=== PATIENT | male | born 1985 | race Two or more races ===

== ENCOUNTER 2021-03-17 14:49 | Emergency (ER) | payer OTHER, SELFPAY ==
[2021-03-17 15:01] VITALS: BP 136/82; PULSE 120; BMI 22.9
[2021-03-17 15:10] VITALS: BP 141/84; PULSE 112; TEMP 36.7; O2SAT 99
--- NOTE | 2021-03-17 15:54 | ED.OVERDOSE ---
HPI - Overdose General Chief Complaint: Overdose Stated Complaint: od Time Seen by Provider: 03/17/21 15:49 Source: patient Mode of arrival: EMS Limitations: no limitations History of Present Illness HPI Narrative: 35-year-old male past medical history significant for opiate use disorder presents to the emergency department via EMS with concerns of an overdose. Patient tells me that this morning he took oxycodone that he found, and he used 1 bag of heroin (inhaled) he tells me that he has been clean for a few months, he has not used heroin. He told me used today because he found it around the house. He tells me that his sister called EMS, because he fell asleep on the couch after using heroin. He tells me did not fall he did not hit his head, did not lose consciousness. According to EMS he received 4 mg of intranasal Narcan. At this time patient has no complaints, he is feeling well and wants to leave. He denies chest pain, shortness of breath, fevers, chills, nausea, vomiting, headaches, dizziness. No SI or HI. He sates this was accidental MD complaint: accidental overdose Onset (ago): hour(s) (1) Intent: other (accidental ) How Overdose Was Discovered: called family/friend Context: Intentional Overdose: other (accidental ) Context: Accidental Overdose: other (found a bag around the house ) Treatments Prior to Arrival: narcan (4 mg) Related Data Allergies Allergy/AdvReac Type Severity Reaction Status Date / Time No Known Drug Allergies Allergy Unknown Verified 03/17/21 15:03 Review of Systems Review of Systems: Constitutional : No Weight loss, No Fever, No Chills, No Fatigue, No Malaise ENT/Mouth : No sore throat, No Rhinorrhea Eyes: No Eye Pain, No Swelling, No Redness Cardiovascular : No Chest Pain, No SOB, No Dyspnea on Exertion, No Orthopnea, No Edema, No Palpitations Respiratory : No Cough, No Sputum, No Wheezing Gastrointestinal : No Nausea, No Vomiting, No Diarrhea, No Constipation, No abdominal Pain, No Hematochezia, No Melena Genitourinary : No Dysuria, No Urinary Frequency, No Hematuria, Musculoskeletal : No joint pain, No Myalgias, No Joint Swelling Skin : No Skin Lesions, No rash Neuro : No Weakness, No Numbness, No Dizziness, No Headache Psych : No Anxiety/Panic, No Depression, No SI/HI All other systems reviewed and are negative Yes all other systems are reviewed and are negative [facility] Past Medical History Attestation statement: The following information was validated with the patient. Source: old records reviewed and nursing notes reviewed Social History Social History Alcohol intake: current Patient Tobacco Use Status: Current everyday Tobacco user Use of substances other than those prescribed or required for medical reasons: Yes Substance Use Type: Heroin Advance Directives: No Advance Directives Information Provided: Yes Physical Exam Vital Signs: Vital Signs: Last Vital Signs Temp 98.1 F 03/17/21 15:10 Pulse 97 03/17/21 16:29 BP 133/83 03/17/21 16:29 Pulse Ox 98 03/17/21 16:29 BMI result Body Mass Index 22.9 VSS Appearance: Alert.? Oriented X3.? No acute distress.? Head: Normocephalic, atraumatic, no step-offs or deformities Eyes: Pupils equal, round and reactive to light.? ENT: Pharynx normal.? Neck: Normal inspection.? Neck supple.? CVS: Normal heart rate and rhythm.? Pulses normal.? Respiratory: No respiratory distress.? Breath sounds normal.? Abdomen: Soft and nontender.? Skin: Skin warm and dry.? Normal skin color.? Normal skin turgor.? Extremities: No lower extremity edema.? No calf ttp. 5/5 strength to bilateral upper and lower extremities Back: No midline tenderness, no C-spine tenderness, full range of motion, no CVA tenderness bilaterally Neuro: Oriented X 3.? No motor deficit.? No sensory deficit. CN 2-12 intact Course Reevaluation(s) Reevaluation #1: Patient is feeling much better, patient's vital signs are stable. Saturating 98% on room air. He has no complaints again, he does not want any resources. Respiratory rate within normal limts. Patient is safe for discharge home. I have advised him to return to the emergency department with new or worsening symptoms. Time: 16:51 MDM - Overdose MDM Narrative Medical decision making narrative: 1600 35-year-old male past medical history significant for opiate use disorder presents to the emergency via EMS with concerns of an overdose. Patient tells me that he took oxycodone that he found around the house and use 1 bag of heroin (snorted) he tells me he fell asleep and his sister called 911. He has no medical complaints at this time. He would like to go home when he is doing well. Physical examination is benign, cranial nerves 2-12 intact no focal neuro deficits. Patient is alert and oriented x3. Vital signs are stable. Plan at this time is to monitor the patient for a while then DC patient home. 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 He is telling me he does not want any services at this time, he tells me he was sober for a long time and he was able to cut out opiates on his own. Critical Care Time Critical Care Time Critical Care Time: No Discharge Plan Discharge Clinical Impression: Heroin overdose Patient Disposition: Home, Self-Care Instructions: Adult Overdose (ED) Additional Instructions: Take your medications as prescribed. Do not take random medications you find around her house, this is not safe. I offered you detox, and you declined. Please come back if you change your mind. Follow-up with your primary care provider this week. Return to the emergency department with new or worsening symptoms. In case of emergency call 911 Referrals: PhysicianRah [Primary Care Provider] - 2 days
--- NOTE | 2021-03-17 16:27 | MHC.RECOVSUP ---
? Reason for consult:Overdose o?? Current location ED19H? o?? Identified substance use concern Heroin? ?? Overdose ?? Support ? Intervention: o?? Community resources provided o?? Harm reduction discussion ? Plan: ? o?? Patient to follow up with [facility] after discharge ? Additional information: ?Met with Pt. He states that he had pain and took medication that was prescribe to him. Pain was very severe that he decide to do a bag of heroin.He also states that he has been in recovery for about two months.I asked he he wanted to go to detox Pt. refuse to go.Gave Pt. information about Recovery Coaching and [facility].
[2021-03-17 16:29] VITALS: BP 133/83; PULSE 97; O2SAT 98
--- NOTE | 2021-03-17 17:09 | HO.SUDE ---
CARE Team met with pt to offer pt SUDE. Pt declined SUDE and declined resources.
== END 2021-03-17 17:08 | disposition home or self-care (01) ==
PROVIDERS: Emergency Provider Emergency Medicine
DX: T40.1X1A Poisoning by heroin, accidental (unintentional), initial encounter (principal); Y92.9 Unspecified place or not applicable
CPT/HCPCS: 99284

== ENCOUNTER 2023-10-22 00:21 | Emergency (ER) | payer SELFPAY ==
--- NOTE | 2023-10-22 | ECG_ITS ---
Test Reason : CHEST PAIN Blood Pressure : / mmHG Vent. Rate : 085 BPM Atrial Rate : 085 BPM P-R Int : 124 ms QRS Dur : 106 ms QT Int : 368 ms P-R-T Axes : 056 053 051 degrees QTc Int : 437 ms Normal sinus rhythm Normal ECG No previous ECGs available Referred By: Generic ED Physician Electronically Signed By:Ramon Ramirez
--- NOTE | ~2023-10-22 | XR_ITS ---
EXAMINATION: XR KNEE, RIGHT CLINICAL INFORMATION: Injury. Pain. COMPARISON: None available. TECHNIQUE: Four views of the right knee. FINDINGS: The bony structures are osteopenic. The joint spaces are maintained. There is no fracture. There is no joint effusion. There is prepatellar soft tissue swelling. XR/XR knee RT 3V IMPRESSION: Prepatellar soft tissue swelling. Osteopenia. No fracture or joint effusion.
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
--- NOTE | 2023-10-22 00:31 | MHC.EDTECH ---
Patient ekg taken and was read by Provider .
[2023-10-22 01:01] VITALS: BP 128/79; PULSE 85; RESP 16; TEMP 36.9; O2SAT 99; BMI 31.9
--- OUTSIDE RECORDS SUMMARY | 2023-10-22 02:31 | XMS_ITS | Continuity of Care Document ---
Author Organization [facility] Address Unknown Care Team Providers Care Contact Lens Molder Name Role Phone Not on Staff, PCP Primary Care Physician Unavail able [place] [facility] [place] [facility] Attending Physician: Phoebe DE SOUZA, Evelyn Bender Allergies, Adverse Reactions, Alerts No Known Medication Allergies Substance Reaction Severity Status NKA Active Immunizations Given and Recorded Vaccine Date Status Refusal Reason influenza virus vaccine, inactivated 01/16/21 Give n tetanus/diphtheria/pertussis, acel(Tdap) 06/12/18 Given Medications Colace sodium 100 mg oral capsule 100 mg, 1, capsule, By Mouth, 2 times a day, # 28 capsule, Refills 0, Tot. Refills 0, Maintenance, 01/21/21 13:00:00 EDT, Route to Pharmacy Electronically, [facility], Partial fill uponpatient request if the prescription is for a schedu... Start Date: 01/21/21 Stop Date: 02/04/21 Status: Ordered gabapentin 300 mg oral capsule 600 mg, 2, capsule, By Mouth, 3 times a day, # 180 capsule, Refills 0, Tot. Refills 0, Maintenance,01/21/21 13:00:00 EDT, Route to Pharmacy Electronically, [facility], Partial fill upon patient request if the prescription is for a sched... Start Date: 01/21/21 Stop Date: 02/20/21 Status: Ordered ibuprofen 600 mg oral tablet 600 mg, 1, tablet, By Mouth, Every 6 hours, PRN, for 14 days, # 56 tablet, Refills 0, Tot. Refills 0, Acute 02/23/21 14:18:00 EST, Pain , Mild for pain, 02/09/21 14:18:00 EDT, Route to Pharmacy Electronically, [facility], Partial fill... Start Date: 02/09/21 Stop Date: 02/23/21 Status: Ordered lidocaine 4% topical cream 1 application, Topically, 2 times a day, for 14 days, # 30 Gm, 0 Refills, Acute 02/23/21 14:18:00 EST, 02/09/21 14:18:00 EDT, Cream, [facility], Partial fill upon patient request if theprescription is for a schedule II opioid drug., 1 a... Start Date: 02/09/21 Stop Date: 02/23/21 Status: Ordered lidocaine 5% topical film 3 patch, Topically, Daily, # 90 patch, 0 Refills, Maintenance, 01/21/21 13:00:00 EDT, Patch, [facility], Partial fill upon patient request if the prescription is for a schedule II opioid drug., 3 patch Topically Daily,x30 days, 180, cm,... Start Date: 01/21/21 Stop Date: 02/20/21 Status: Ordered [employer] Platform Walker, See Instructions, # 1 each, Refills 0, Tot. Refills 0, Maintenance, Platform Walker, 01/21/21 13:49:00 EDT, Supply Start Date: 01/21/21 Status: Ordered Tylenol 325 mg oral capsule 2 capsule = 650 mg, By Mouth, Every 4 hours, PRN as needed for fever, for 14 days, # 112 capsule, 0Refills, Acute 02/23/21 14:18:00 EST, 02/09/21 14:18:00 EDT, Capsule, [facility], Partial fill upon patient request if the prescription i... Start Date: 02/09/21 Stop Date: 02/23/21 Status: Ordered Problem List Condition Effective Dates Status Health Status Inform ant Rib fractures(Confirmed) Active Vital Signs Most recent to oldest [Reference Range]: 1 Height 180 cm (02/15/21 1:43 PM) Pulse Rate [55-90 bpm] 95 bpm *H* (02/15/21 1:43 PM) Blood Pressure [90-138/55-84 mm Hg] 114/ 68mm Hg (02/15/21 1:43 PM) Respiratory Rate [16-30 br/min] 16 br/mi n (02/15/21 1:43 PM) Temperature [96.8-100.4 DegF] 97.8 DegF (02/15/21 1:43 PM) Blood pressure sites Arm, left (02/15/21 1:43 PM) Temperature Route Temporal (02/15/21 1:43 PM) Social History Social History Type Response Smoking Status 10 or more cigarette s (1/2 pack or more)/day in last 30 days entered on: 06/12/18 Sex
--- OUTSIDE RECORDS SUMMARY | 2023-10-22 02:31 | XMS_ITS | Continuity of Care Document ---
Author Organization [facility] Address Unknown Care Team Providers Care Superintendent Greens Name Role Phone Not on Staff, PCP Primary Care Physician Unavail able [place] [facility] [place] 03/01/21 - 03/08/21 [facility] Attending Physician: Phoebe DE SOUZA, [...] 01/21/21 13:00:00 EDT, Route to Pharmacy Electronically, [email or web address], Partial fill uponpatient request if the prescription is for a schedu... Start Date: 01/21/21 Stop Date: 02/04/21 Status: Ordered gabapentin 300 mg oral capsule 600 mg, 2, capsule, By Mouth, 3 times a day, # 180 capsule, Refills 0, Tot. Refills 0, Maintenance,01/21/21 13:00:00 EDT, Route to Pharmacy Electronically, [email or web address], Partial fill upon patient request if the prescription is for a sched... Start Date: 01/21/21 Stop Date: 02/20/21 Status: Ordered lidocaine 5% topical film 3 patch, Topically, Daily, # 90 patch, 0 Refills, Maintenance, 01/21/21 13:00:00 EDT, Patch, [facility], Partial fill upon patient request if the prescription is for a schedule II opioid drug., 3 patch Topically Daily,x30 days, 180, cm,... Start Date: 01/21/21 Stop Date: 02/20/21 Status: Ordered oxyCODONE 5 mg oral capsule 1 capsule = 5 mg, By Mouth, Every 6 hours, PRN as needed for pain, 0 Refills, Maintenance, 03/01/2113:48:00 EST, Capsule, Partial fill upon patient request if the prescription is for a schedule II opioid drug. Start Date: 03/01/21 Status: Ordered Platform Walker Platform Walker, See Instructions, # 1 each, Refills 0, Tot. Refills 0, Maintenance, Platform Walker, 01/21/21 13:49:00 EDT, Supply Start Date: 01/21/21 Status: Ordered Problem List Condition Effective Dates Status Health Status Inform ant Rib fractures(Confirmed) Active Social History Social History Type Response Smoking Status 10 or more cigarette s (1/2 pack or more)/day in last 30 days entered on: 06/12/18 Sex
--- OUTSIDE RECORDS SUMMARY | 2023-10-22 02:31 | XMS_ITS | Continuity of Care Document ---
Author Organization [facility] Address Unknown Care Team Providers Care Assistant Golf Course Superintendent Name Role Phone Not on Staff, PCP Primary Care Physician Unavail able Encounter [facility] Date(s): 03/01/21 - 03/31/21 [facility] Attending Physician: Renuka Sneed Admitting Physician: Renuka Sneed Referring Physician: AdmRenuka parsons Allergies, Adverse Reactions, Alerts No Known Medication [...] 13:00:00 EDT, Route to Pharmacy Electronically, [facility], Partial fill uponpatient request if the prescription is for a schedu... Start Date: 01/21/21 Stop Date: 02/04/21 Status: Ordered gabapentin 300 mg oral capsule 600 mg, 2, capsule, By Mouth, 3 times a day, # 180 capsule, Refills 0, Tot. Refills 0, Maintenance,01/21/21 13:00:00 EDT, Route to Pharmacy Electronically, [facility], Partial fill upon patient request if the prescription is for a sched... Start Date: 01/21/21 Stop Date: 02/20/21 Status: Ordered lidocaine 5% topical film 3 patch, Topically, Daily, # 90 patch, 0 Refills, Maintenance, 01/21/21 13:00:00 EDT, Patch, [facility], Partial fill upon patient request [...] opioid drug. Start Date: 03/01/21 Status: Ordered [employer] Platform Walker, See Instructions, # 1 each, [...]
--- OUTSIDE RECORDS SUMMARY | 2023-10-22 02:31 | XMS_ITS | Continuity of Care Document ---
Author Organization [facility] Address Unknown Care Team Providers Care Plate Sensitizer Name Role Phone Not on Staff, PCP Primary Care Physician Unavail able [place] [facility] [place](s): 01/23/21 - 02/22/21 [facility] Allergies, Adverse Reactions, Alerts No Known Medication [...] EDT, Route to Pharmacy Electronically, [facility], Partial fill uponpatient request if the prescription is for a schedu... Start Date: 01/21/21 Stop Date: 02/04/21 Status: Ordered gabapentin 300 mg oral capsule 600 mg, 2, capsule, By Mouth, 3 times a day, # 180 capsule, Refills 0, Tot. Refills 0, Maintenance,01/21/21 13:00:00 EDT, Route to Pharmacy Electronically, [facility], Partial fill upon patient request if the prescription is for a sched... Start Date: 01/21/21 Stop Date: 02/20/21 Status: Ordered ibuprofen 600 mg oral tablet 600 mg, 1, tablet, By Mouth, Every 6 hours, PRN, for 14 days, # 56 tablet, Refills 0, Tot. Refills 0, Acute 02/23/21 14:18:00 EST, Pain , Mild for pain, 02/09/21 14:18:00 EDT, Route to Pharmacy Electronically, [facility], Partial fill... Start Date: 02/09/21 Stop Date: 02/23/21 Status: Ordered lidocaine 4% topical cream 1 application, Topically, 2 times a day, for 14 days, # 30 Gm, 0 Refills, Acute 02/23/21 14:18:00 EST, 02/09/21 14:18:00 EDT, Cream, [facility], Partial fill upon [...] Date: 01/21/21 Stop Date: 02/20/21 Status: Ordered [employer] Platform Walker, See Instructions, # 1 each, Refills 0, Tot. Refills 0, Maintenance, Platform Walker, 01/21/21 13:49:00 EDT, Supply Start Date: 01/21/21 Status: Ordered Tylenol 325 mg oral capsule 2 capsule = 650 mg, By Mouth, Every 4 hours, PRN as needed for fever, for 14 days, # 112 capsule, 0Refills, Acute 02/23/21 14:18:00 EST, 02/09/21 14:18:00 EDT, Capsule, [facility], Partial fill upon patient request if the prescription i... Start Date: 02/09/21 Stop Date: 02/23/21 Status: Ordered Problem List Condition Effective Dates Status Health Status Inform ant Rib fractures(Confirmed) Active Social History Social History Type Response Smoking Status 10 or more cigarette s (1/2 pack or more)/day in last 30 days entered on: 06/12/18 Sex
--- OUTSIDE RECORDS SUMMARY | 2023-10-22 02:31 | XMS_ITS | Continuity of Care Document ---
Author Organization [facility] ter Address [address] [place] [id number]- Care Team Providers Care Clinical Nursing Manager Name Role Phone Not on Staff, PCP Primary Care Physician Unavail able [place] [facility] [place] 04/06/[address] [address]- Attending Physician: Derek Crowell MD Admitting Physician: Derek Crowell MD Referring Physician: Derek Crowell MD Allergies, Adverse Reactions, Alerts No Known Medication [...] 01/21/21 13:00:00 EDT, Route to Pharmacy Electronically, [facility], Partial fill uponpatient request if the prescription is for a schedu... Start Date: 01/21/21 Stop Date: 02/04/21 Status: Ordered gabapentin 300 mg oral capsule 600 mg, 2, capsule, By Mouth, 3 times a day, # 180 capsule, Refills 0, Tot. Refills 0, Maintenance,01/21/21 13:00:00 EDT, Route to Pharmacy Electronically, [facility], Partial fill upon patient request if the prescription is for a sched... Start Date: 01/21/21 Stop Date: 02/20/21 Status: Ordered lidocaine 5% topical film 3 patch, Topically, Daily, # 90 patch, 0 Refills, Maintenance, 01/21/21 13:00:00 EDT, Patch, [facility], Partial fill upon patient [...] opioid drug. Start Date: 03/01/21 Status: Ordered [employer] Platform Walker, See Instructions, # 1 each, [...]
--- OUTSIDE RECORDS SUMMARY | 2023-10-22 02:31 | XMS_ITS | Continuity of Care Document ---
Author Organization [facility] ter Address [address] [place] [id number]- Care Team Providers Care Wire Puller Name Role Phone Not on Staff, PCP Primary Care Physician Unavail able Encounter [facility] [place] Date(s): 01/24/21 - 01/24/[address] [address]- Discharge Disposition: A-D/C Home Attending Physician: Brittney Junior DO Admitting Physician: Brittney Junior DO Referring Physician: Not on Staff, Referring MD Allergies, Adverse Reactions, Alerts No Known [...] 01/21/21 13:00:00 EDT, Route to Pharmacy Electronically, [facility], Partial fill uponpatient request if the prescription is for a schedu... Start Date: 01/21/21 Stop Date: 02/04/21 Status: Ordered gabapentin 300 mg oral capsule 600 mg, 2, capsule, By Mouth, 3 times a day, # 180 capsule, Refills 0, Tot. Refills 0, Maintenance,01/21/21 13:00:00 EDT, Route to Pharmacy Electronically, [facility], Partial fill upon patient request if the prescription is for a sched... Start Date: 01/21/21 Stop Date: 02/20/21 Status: Ordered ibuprofen 600 mg oral tablet 600 mg, 1, tablet, By Mouth, 3 times a day, for 14 days, # 42 tablet, Refills 0, Tot. Refills 0, Acute 02/04/21 13:00:00 EDT, 01/21/21 13:00:00 EDT, Route to Pharmacy Electronically, [facility], Partial fill upon patient request if the p... Start Date: 01/21/21 Stop Date: 02/04/21 Status: Ordered lidocaine 5% topical film 3 patch, Topically, Daily, # 90 patch, 0 Refills, Maintenance, 01/21/21 13:00:00 EDT, Patch, [facility], Partial fill upon patient request if the prescription is for a schedule II opioid drug., 3 patch Topically Daily,x30 days, 180, cm,... Start Date: 01/21/21 Stop Date: 02/20/21 Status: Ordered magnesium hydroxide 8% oral suspension 30 mL = 2.4 Gm, By Mouth, 2 times a day, for 10 days, # 600 mL, 0 Refills, Acute 01/31/21 13:00:00 EDT, 01/21/21 13:00:00 EDT, [facility] Partial fill upon patient request if the prescription is for a schedule II opioid drug... Start Date: 01/21/21 Stop Date: 01/31/21 Status: Ordered melatonin 5 mg oral tablet 1 tablet = 5 mg, By Mouth, Daily at bedtime, for 10 days, # 10 tablet, 0 Refills, Acute 01/31/21 13:00:00 EDT, 01/21/21 13:00:00 EDT, Table[facility], Partial fill upon patient request if the prescription is for a schedule II opioid d... Start Date: 01/21/21 Stop Date: 01/31/21 Status: Ordered MiraLax oral powder for reconstitution = 17 Gm, By Mouth, Daily, for 7 days, dissolve in water before taking, # 119 Gm, 0 Refills, Acute 01/28/21 13:00:00 EDT, 01/21/21 13:00:00 EDT, REC Powder, [facility], Partial fill uponpatient request if the prescription is for a schedu... Start Date: 01/21/21 Stop Date: 01/28/21 Status: Ordered oxyCODONE 5 mg oral tablet 5 mg, 1, tablet, By Mouth, Every 3 hours, PRN, for 5 days, # 40 tablet, Refills 0, Tot. Refills 0, Acute 01/26/21 13:00:00 EDT, Pain , Severe, 01/21/21 13:00:00 EDT, Route to Pharmacy Electronically,[facility], Partial fill upon patient... Start Date: 01/21/21 Stop Date: 01/26/21 Status: Ordered Platform Walker Platform Walker, See Instructions, # 1 each, Refills 0, Tot. Refills 0, Maintenance, Platform Walker, 01/21/21 13:49:00 EDT, Supply Start Date: 01/21/21 Status: Ordered scopolamine 1 mg/72 hr transdermal film, extended release 1 film, Topically, Every 72 hours, for 10 days, # 10 each, 0 Refills, Acute 01/31/21 13:00:00 EDT, 01/21/21 13:00:00 EDT, [facility], Partial fill upon patient request if the prescription is for a schedule II opioid drug., 1 film Topical... Start Date: 01/21/21 Stop Date: 01/31/21 Status: Ordered Tylenol 325 mg oral tablet 650 mg, 2, tablet, By Mouth, Every 6 hours, for 14 days, # 112 tablet, Refills 0, Tot. Refills 0, Acute 02/04/21 12:59:00 EDT, 01/21/21 12:59:00 EDT, Route to Pharmacy Electronically, [facility], Partial fill upon patient request if the... Start Date: 01/21/21 Stop Date: 02/04/21 Status: Ordered Problem List Condition Effective Dates Status Health Status Inform ant Rib fractures(Confirmed) Active Vital Signs Most recent to oldest [Reference Range]: 1 2 3 Oxygen Saturation [94-100 %] 99 % (01/24/21 7:19 AM) 100 % (01/24/21 5:10 AM) 98 % (01/24/21 5:06 AM) Pulse Rate [55-90 bpm] 88 bpm (01/24/21 7:19 AM) 86 bpm (01/24/21 5:10 AM) 87 bpm (01/24/21 5:06 AM) Blood Pressure [90-138/55-84 mm Hg] 115/74mm Hg (01/24/21 7:19 AM) 112/58mm Hg (01/24/21 5:10 AM) 112/74mm Hg (01/24/21 5:06 AM) Respiratory Rate [16-30 br/min] 16 br/min (01/24/21 7:19 AM) 16 br/min (01/24/21 5:06 AM) 20 br/min (01/24/21 3:40 AM) Temperature [96.8-100.4 DegF] 99.0 DegF (01/24/21 5:10 AM) 99.3 DegF (01/24/21 3:40 AM) 98.2 DegF (01/24/21 12:52 AM) Mode of Delivery (Oxygen) Room air (01/24/21 7:19 AM) Room air (01/24/21 5:10 AM) Room air (01/24/21 5:06 AM) Blood pressure sites Arm, left (01/24/21 7:19 AM) Arm, left (01/24/21 5:10 AM) Arm, left (01/24/21 5:06 AM) Temperature Route Oral (01/24/21 5:10 AM) Oral (01/24/21 3:40 AM) Oral (01/24/21 12:52 AM) Social History Social History Type Response Smoking Status 10 or more cigarette s (1/2 pack or more)/day in last 30 days entered on: 06/12/18 Sex
--- OUTSIDE RECORDS SUMMARY | 2023-10-22 02:31 | XMS_ITS | Continuity of Care Document ---
Author Organization [facility] Address Unknown Care Team Providers Care Sourcing Specialist Name Role Phone Not on Staff, PCP Primary Care Physician Unavail able Encounter [place] Date(s): 02/15/21 - 03/31/21 [facility] Attending Physician: Lei Goldsmith Allergies, Adverse Reactions, Alerts No Known Medication [...] 01/21/21 13:00:00 EDT, Route to Pharmacy Electronically, [facility], Partial fill uponpatient request if the prescription is for a schedu... Start Date: 01/21/21 Stop Date: 02/04/21 Status: Ordered gabapentin 300 mg oral capsule 600 mg, 2, capsule, By Mouth, 3 times a day, # 180 capsule, Refills 0, Tot. Refills 0, Maintenance,01/21/21 13:00:00 EDT, Route to Pharmacy Electronically, [facility], Partial fill upon patient request if the prescription is for a sched... Start Date: 01/21/21 Stop Date: 02/20/21 Status: Ordered lidocaine 5% topical film 3 patch, Topically, Daily, # 90 patch, 0 Refills, Maintenance, 01/21/21 13:00:00 EDT, Patch, [facility], Partial fill upon patient request [...] oldest [Reference Range]: 1 Height 180 cm (03/01/21 1:46 PM) Weight 66.6 kg (03/01/21 1:46 PM) Pulse Rate [55-90 bpm] 108 bpm *H* (03/01/21 1:46 PM) Body Mass Index [18.5-24.99] 20.56 (03/01/21 1:46 PM) Blood Pressure [90-138/55-84 mm Hg] 111/ 70mm Hg (03/01/21 1:46 PM) Temperature [96.8-100.4 DegF] 98.8 DegF (03/01/21 1:46 PM) Blood pressure sites Arm, left (03/01/21 1:46 PM) Temperature Route Temporal (03/01/21 1:46 PM) Weight Obtained Via Standing scale (03/01/21 1:46 PM) Social History Social History Type Response Smoking Status 10 or more cigarette s (1/2 pack or more)/day in last 30 days entered on: 06/12/18 Sex
--- OUTSIDE RECORDS SUMMARY | 2023-10-22 02:31 | XMS_ITS | Continuity of Care Document ---
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 Role Phone Not on Staff, PCP Primary Care Physician Unavail able Encounter [facility] Date(s): 01/15/21 - 01/21/[address] [id number]- Encounter Diagnosis Arm fracture, right(Final) - 01/15/21 Discharge Disposition: A-D/C Home Attending Physician: Nuzhat Hunter MD Admitting Physician: Nuzhat Hunter MD Referring Physician: Not on Staff, Referring MD Allergies, Adverse Reactions, Alerts No Known Medication Allergies Substance Reaction Severity Status NKA Active Immunizations Given and Recorded Vaccine Date Status Refusal Reason influenza virus vaccine, inactivated 01/16/21 Give n Medications Colace sodium 100 mg oral capsule 100 mg, 1, capsule, By Mouth, 2 times a day, # 28 capsule, Refills 0, Tot. Refills 0, Maintenance, 01/21/21 13:00:00 EDT, Route to Pharmacy Electronically, [facility], Partial fill uponpatient request if the prescription is for a schedu... Start Date: 01/21/21 Stop Date: 02/04/21 Status: Ordered gabapentin 300 mg oral capsule 600 mg, 2, capsule, By Mouth, 3 times a day, # 180 capsule, Refills 0, Tot. Refills 0, Maintenance,01/21/21 13:00:00 EDT, Route to Pharmacy Electronically, [facility], Partial fill upon patient request if the prescription is for a sched... Start Date: 01/21/21 Stop Date: 02/20/21 Status: Ordered gabapentin 300 mg oral capsule 600 mg, Capsule, By Mouth, 01/21/21 9:00:00 EDT Start Date: 01/21/21 Stop Date: 01/21/21 Status: Completed ibuprofen 600 mg oral tablet 600 mg, 1, tablet, By Mouth, 3 times a day, for 14 days, # 42 tablet, Refills 0, Tot. Refills 0, Acute 02/04/21 13:00:00 EDT, 01/21/21 13:00:00 EDT, Route to Pharmacy Electronically, [facility], Partial fill upon patient request if the p... Start Date: 01/21/21 Stop Date: 02/04/21 Status: Ordered ibuprofen 600 mg oral tablet 600 mg, Tablet, By Mouth, 01/21/21 9:00:00 EDT Start Date: 01/21/21 Stop Date: 01/21/21 Status: Completed lidocaine 5% topical film 3 patch, Topically, Daily, # 90 patch, 0 Refills, Maintenance, 01/21/21 13:00:00 EDT, Patch, [facility], Partial fill upon patient request if the prescription is for a schedule II opioid drug., 3 patch Topically Daily,x30 days, 180, cm,... Start Date: 01/21/21 Stop Date: 02/20/21 Status: Ordered magnesium hydroxide 8% oral suspension 30 mL = 2.4 Gm, By Mouth, 2 times a day, for 10 days, # 600 mL, 0 Refills, Acute 01/31/21 13:00:00 EDT, 01/21/21 13:00:00 EDT, Suspension, [facility], Partial fill upon patient request if the prescription is for a schedule II opioid drug... Start Date: 01/21/21 Stop Date: 01/31/21 Status: Ordered melatonin 5 mg oral tablet 1 tablet = 5 mg, By Mouth, Daily at bedtime, for 10 days, # 10 tablet, 0 Refills, Acute 01/31/21 13:00:00 EDT, 01/21/21 13:00:00 EDT, Tablet, [facility], Partial fill upon patient request if the prescription is for a schedule II opioid d... Start Date: 01/21/21 Stop Date: 01/31/21 Status: Ordered MiraLax oral powder for reconstitution = 17 Gm, By Mouth, Daily, for 7 days, dissolve in water before taking, # 119 Gm, 0 Refills, Acute 01/28/21 13:00:00 EDT, 01/21/21 13:00:00 EDT, REC Powder, [facility], Partial fill uponpatient request if the prescription is for a schedu... Start Date: 01/21/21 Stop Date: 01/28/21 Status: Ordered oxyCODONE 5 mg oral tablet 5 mg, 1, tablet, By Mouth, Every 3 hours, PRN, for 5 days, # 40 tablet, Refills 0, Tot. Refills 0, Acute 01/26/21 13:00:00 EDT, Pain , Severe, 01/21/21 13:00:00 EDT, Route to Pharmacy Electronically,[facility], Partial fill upon patient... 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 Refills 0, Maintenance, Platform Walker, 01/21/21 13:49:00 EDT, Supply Start Date: 01/21/21 Status: Ordered scopolamine 1 mg/72 hr transdermal film, extended release 1 film, Topically, Every 72 hours, for 10 days, # 10 each, 0 Refills, Acute 01/31/21 13:00:00 EDT, 01/21/21 13:00:00 EDT, [facility] 3, Partial fill upon patient request [...] 01/21/21 12:59:00 EDT, Route to Pharmacy Electronically, [facility], Partial fill upon patient request if the... Start Date: 01/21/21 Stop Date: 02/04/21 Status: Ordered Problem List Condition Effective Dates Status Health Status Inform ant Rib fractures(Confirmed) Active Results Radiology Reports (Most Recent Ten) * Exam Date Time Procedure Performing Provider Status 01/18/21 3:43 AM Chest Portable Kristina Garcia; Auth (V erified) Notes: (Chest Portable) Reason For Exam: drop in h/h with rib fx and ptx/mary beth;Follow-Up Pleural Effusion RESULT: Chest Portable Chest Portable Reason: Follow-Up Pleural Effusion; drop in h h with rib fx and ptx mary beth; Clinical Question(s): Trauma COMPARISON: Multiple priors, most recent 01/16/2021. FINDINGS: LINES AND TUBES: None. LUNGS AND PLEURA: Small right-sided pleural effusion has not significantly changed since prior study from 01/16/2021. There is persistent hazy opacity throughout the right mid to lower lung consistent with pulmonary contusion. Persistent trace right apical pneumothorax, not significantly changed from prior study. Theleft lung is clear. No pleural effusion or pneumothorax on the left. HEART, MEDIASTINUM AND JOHN: Heart is normal in size. Normal upper mediastinal and hilar contour. BONES AND SOFT TISSUES: No acute abnormality Unchanged displaced and comminuted fracture of the right posterolateral ribs. IMPRESSION: 1. Small right pleural effusion has not significantly changed since 01/16/2021. Persistent trace pneumothorax on the right. Unchanged contusion of the right lung. 2. The left lung is unremarkable. I have personally reviewed the images and I agree with this report. WSN: [id number] Ordering Physician: Sherry Langford Dictated By: Rogerio Souza DO Dictated Date/Time: 01/18/21 8:52 am Reviewed By: David Yan MD Signed By: David Yan MD Signed Date/Time: 01/18/21 8:57 am Transcribed By: RAI Transcribed Date/Time: 01/18/21 8:43 am * Exam Date Time Procedure Performing Provider Status 01/16/21 6:05 AM Chest Portable Yomaira Joya; Auth (Verified) Notes: (Chest Portable) Reason For Exam: ptx;Other: RESULT: Chest Portable Chest Portable Reason: ptx; Clinical Question(s): Pneumothorax COMPARISON: Multiple priors, most recent 01/15/2021. FINDINGS: LINES AND TUBES: None. LUNGS AND PLEURA: Trace right pneumothorax is not significantly changed since prior study. Small right-sided pleural effusion. Nonspecific hazy opacity in the right lung. No pleural effusion or pneumothorax on the left. The left lung is clear. HEART, MEDIASTINUM AND JOHN: Unchanged. BONES AND SOFT TISSUES: No acute abnormality. Multiple rib fractures on the right are once again noted. IMPRESSION: 1. Unchanged trace right pneumothorax and small right-sided pleural effusion. 2. Nonspecific hazy opacity in the right lung most likely represents underlying pulmonary contusion. I have personally reviewed the images and I agree with this report. WSN: [id number] Ordering Physician: Anant Yadav Dictated By: Rogerio Souza DO Dictated Date/Time: 01/16/21 12:16 p Reviewed By: Edgar Motta MD, V Signed By: Edgar Motta MD, V Signed Date/Time: 01/16/21 12:21 pm Transcribed By: RAI Transcribed Date/Time: 01/16/21 11:24 am * Exam Date Time Procedure Performing Provider Status 01/15/21 10:04 PM Chest Portable Kibe , Kacie; Auth (V erified) Notes: (Chest Portable) Reason For Exam: Follow-Up Pleural Effusion RESULT: Chest Portable Chest Portable Reason: Follow-Up Pleural Effusion; Clinical Question(s): Pneumothorax COMPARISON: 01/15/2021 FINDINGS: Chest is overpenetrated. LINES AND TUBES: None. LUNGS AND PLEURA: Small right effusion. Small right apical pneumothorax measures 0.5 cm. Linear atelectasis in the left lower lobe. HEART, MEDIASTINUM AND JOHN: Heart is normal in size. Normal upper mediastinal and hilar contour. BONES AND SOFT TISSUES: Acute fractures of right ribs 3-11, mildly displaced. There is a likely chest wall/subpleural hematoma along the lateral right hemithorax. IMPRESSION: Small right apical pneumothorax and small right pleural effusion. Effusion appears new. Multiple right rib fractures. WSN: [id number] Ordering Physician: Sherry Langford Dictated By: Linda Walters MD Dictated Date/Time: 01/15/21 10:29 p Reviewed By: Linda Walters MD Signed By: Linda Walters MD Signed Date/Time: 01/15/21 10:29 pm Transcribed By: RAI Transcribed Date/Time: 01/15/21 10:26 pm * Exam Date Time Procedure Performing Provider Status 01/15/21 3:32 PM XR Hip Comp 2 Views Left David Montiel; Dianelys (Verified) Notes: (XR Hip Comp 2 Views Left) Reason For Exam: o.r.i.f. left hip RESULT: Hip Comp 2 Views Left Hip Comp 2 Views Left INDICATION: Reason: o.r.i.f. left hip COMPARISONS: None TECHNIQUE: Fluoroscopy support was provided. There was no radiologist in attendance. Fluoroscopy time: 63.7 Exposure: 15.1 mGy FINDINGS: Left hip ORIF. IMPRESSION: See above. I have personally reviewed the images and I agree with this report. WSN: [id number] Ordering Physician: Constantin Soriano Dictated By: Rogerio Souza DO Dictated Date/Time: 01/15/21 8:22 pm Reviewed By: Ricki Urbina MD Signed By: Ricki Urbina MD Signed Date/Time: 01/15/21 8:27 pm Transcribed By: RAI Transcribed Date/Time: 01/15/21 8:13 pm * Exam Date Time Procedure Performing Provider Status 01/15/21 3:32 PM C-Arm < 1 Hour Venita Montiel; Dianelys (Verified) Notes: (C-Arm < 1 Hour) Reason For Exam: o.r.i..f. left hip RESULT: C-Arm < 1 Hour PROCEDURE: Elbow Min 3 Views Right, C-Arm < 1 Hour, C-Arm < 1 Hour CLINICAL INDICATION: 35 years old Male with Reason: o.r.i.f. right elbow. COMPARISONS: RIGHT elbow of earlier today. TECHNIQUE: Fluoroscopy support was provided in the operating room for the referring physician usingthe C-arm. There was no radiologist in attendance. This report is provided for documentation purposes. In addition, a total of six views of the RIGHT elbow in the frontal and lateral projections are obtained in the OR with the C-arm. Fluoroscopy time: 27 seconds. Technologist time: 20 minutes. FINDINGS: Internal fixation of the comminuted fracture through the proximal shaft of the ulna with a posterior metallic plate fixated by a total of eight screws. The fracture appears in close to anatomic alignment. Additional screw placed at the level of the fracture transversely. Small avulsion fracture or calcification just distal to the medial epicondyle again noted. Reduction of radial head dislocationnoted. IMPRESSION: 1. C-arm study performed in the OR. 2. ORIF of ulnar fracture and reduction of radial head dislocation as detailed. Thank you for allowing me to participate in the care of this patient. WSN: [id number] Ordering Physician: Constantin Soriano Dictated By: Luis Manuel Pollard MD Dictated Date/Time: 01/15/21 6:51 pm Reviewed By: Luis Manuel Pollard MD Signed By: Luis Manuel Pollard MD Signed Date/Time: 01/15/21 6:51 pm Transcribed By: RAI Transcribed Date/Time: 01/15/21 6:48 pm * Exam Date Time Procedure Performing Provider Status 01/15/21 5:08 PM C-Arm < 1 Hour Briseida Cleveland; Auth (Verified) Notes: (C-Arm < 1 Hour) Reason For Exam: o.r.i.f. right elbow RESULT: C-Arm < 1 Hour PROCEDURE: Elbow Min 3 Views Right, C-Arm < 1 Hour, C-Arm < 1 Hour CLINICAL INDICATION: 35 years old Male with Reason: o.r.i.f. right elbow. COMPARISONS: RIGHT elbow of earlier today. TECHNIQUE: Fluoroscopy support was provided in the operating room for the referring physician usingthe C-arm. There was no radiologist in attendance. This report is provided for documentation purposes. In addition, a total of six views of the RIGHT elbow in the frontal and lateral projections are obtained in the OR with the C-arm. Fluoroscopy time: 27 seconds. Technologist time: 20 minutes. FINDINGS: Internal fixation of the comminuted fracture through the proximal shaft of the ulna with a posterior metallic plate fixated by a total of eight screws. The fracture appears in close to anatomic alignment. Additional screw placed at the level of the fracture transversely. Small avulsion fracture or calcification just distal to the medial epicondyle again noted. Reduction of radial head dislocationnoted. IMPRESSION: 1. C-arm study performed in the OR. 2. ORIF of ulnar fracture and reduction of radial head dislocation as detailed. Thank you for allowing me to participate in the care of this patient. WSN: [id number] Ordering Physician: Constantin Soriano Dictated By: Luis Manuel Pollard MD Dictated Date/Time: 01/15/21 6:51 pm Reviewed By: Luis Manuel Pollard MD Signed By: Luis Manuel Pollard MD Signed Date/Time: 01/15/21 6:51 pm Transcribed By: RAI Transcribed Date/Time: 01/15/21 6:48 pm * Exam Date Time Procedure Performing Provider Status 01/15/21 5:08 PM Elbow Min 3 Views Right Briseida Cleveland; Auth (Verified) Notes: (Elbow Min 3 Views Right) Reason For Exam: o.r.i.f. right elbow RESULT: Elbow Min 3 Views Right PROCEDURE: Elbow Min 3 Views Right, C-Arm < 1 Hour, C-Arm < 1 Hour CLINICAL INDICATION: 35 years old Male with Reason: o.r.i.f. right elbow. COMPARISONS: RIGHT elbow of earlier today. TECHNIQUE: Fluoroscopy support was provided in the operating room for the referring physician usingthe C-arm. There was no radiologist in attendance. This report is provided for documentation purposes. In addition, a total of six views of the RIGHT elbow in the frontal and lateral projections are obtained in the OR with the C-arm. Fluoroscopy time: 27 seconds. Technologist time: 20 minutes. FINDINGS: Internal fixation of the comminuted fracture through the proximal shaft of the ulna with a posterior metallic plate fixated by a total of eight screws. The fracture appears in close to anatomic alignment. Additional screw placed at the level of the fracture transversely. Small avulsion fracture or calcification just distal to the medial epicondyle again noted. Reduction of radial head dislocationnoted. IMPRESSION: 1. C-arm study performed in the OR. 2. ORIF of ulnar fracture and reduction of radial head dislocation as detailed. Thank you for allowing me to participate in the care of this patient. WSN: [id number] Ordering Physician: Constantin Soriano Dictated By: Luis Manuel Pollard MD Dictated Date/Time: 01/15/21 6:51 pm Reviewed By: Luis Manuel Pollard MD Signed By: Luis Manuel Pollard MD Signed Date/Time: 01/15/21 6:51 pm Transcribed By: RAI Transcribed Date/Time: 01/15/21 6:48 pm * Exam Date Time Procedure Performing Provider Status 01/15/21 7:59 AM Chest 2 Views Frontal and Lat Kita Strong; Auth (Verified) Notes: (Chest 2 Views Frontal and Lat) Reason For Exam: Other: RESULT: Chest 2 Views Frontal and Lat Chest 2 Views Frontal and Lat Reason: Other:; Clinical Question(s): Trauma COMPARISON: CT chest 01/15/2021. FINDINGS: LINES AND TUBES: None. LUNGS AND PLEURA: Small RIGHT apical pneumothorax identified, similar to the recently performed CT. No pleural effusion. Multifocal hazy opacification in the RIGHT lung, corresponding to airspace opacification on the CT,likely pulmonary contusion. HEART, MEDIASTINUM AND JOHN: Heart is normal in size. Normal upper mediastinal and hilar contour. BONES AND SOFT TISSUES: Multiple RIGHT posterior rib fractures, several which are mildly displaced. IMPRESSION: Small RIGHT apical pneumothorax, multifocal RIGHT lung airspace opacity likely representing pulmonary contusion and multiple right-sided rib fractures. WSN: [id number] Ordering Physician: Bonifacio Hinton Dictated By: Mar Jones MD Dictated Date/Time: 01/15/21 11:53 a Reviewed By: Mar Jones MD Signed By: Mar Jones MD Signed Date/Time: 01/15/21 11:53 am Transcribed By: CSAndry Transcribed Date/Time: 01/15/21 11:50 am * Exam Date Time Procedure Performing Provider Status 01/15/21 5:14 AM Tibia/Fibula 2 Views Left Mariaelena Baldwin; Auth (Verified) Notes: (Tibia/Fibula 2 Views Left) Reason For Exam: Pain RESULT: Tibia/Fibula 2 Views Left Tibia/Fibula 2 Views Left Reason: Pain; Clinical Question(s): Fracture COMPARISON: None. FINDINGS: No acute fracture of the tibia or fibula. Visualized joints are normal. Normal soft tissues. IMPRESSION: No acute fracture of the tibia or fibula. WSN: [id number] Ordering Physician: Gomez Varela Dictated By: Mar Jones MD Dictated Date/Time: 01/15/21 10:28 a Reviewed By: Mar Jones MD Signed By: Mar Jones MD Signed Date/Time: 01/15/21 10:28 am Transcribed By: CSB Transcribed Date/Time: 01/15/21 10:28 am * Exam Date Time Procedure Performing Provider Status 01/15/21 2:59 AM Elbow Min 3 Views Right Kay Saldivar Sebastian Ivory (Verified) Notes: (Elbow Min 3 Views Right) Reason For Exam: Trauma RESULT: Elbow Min 3 Views Right Humerus Min 2 Views Right, Forearm 2 Views Right, Elbow Min 3 Views Right Reason: Trauma; with Pain; Clinical Question(s): Fracture TECHNIQUE: AP and lateral views right humerus; AP, oblique, lateral views right elbow; PA and lateral views right forearm COMPARISON: None. FINDINGS: No abnormality is seen about the visualized portion of the right shoulder. The humerus appears intact. There is a well-defined ovoid 2 x 5 mm ossicle just distal to the medial epicondyles, likely sequela of remote epicondylitis and does not appear to represent a fracture. There is an anterior dislocation of the radial head with respect to the capitellum, with mild override. There is associated disruption of the proximal radioulnar joint. The humeral ulnar joint maintains alignment. There is a mildly comminuted fracture of the proximal ulnar shaft, with moderate dorsal angulation of the distal portion, as well as a dominant 3.6 cm long fragment along the posterior aspect of the fracture region. A splint is present along the mid to distal upper arm and visualized elbow. No radiographic evidence of soft tissue gas or foreign matter. IMPRESSION: Negative right humerus. Montegg[place] fracture-dislocation, with anterior dislocation of the radial head relative to the capitellum, disruption of the proximal radial ulnar joint, and proximal ulnar shaft fracture. WSN: [id number] Ordering Physician: Rodo Conner Dictated By: Bradford Jiménez MD Dictated Date/Time: 01/15/21 10:38 a Reviewed By: Bradford Jiménez MD Signed By: Bradford Jiménez MD Signed Date/Time: 01/15/21 10:38 am Transcribed By: RAI Transcribed Date/Time: 01/15/21 10:36 am Vital Signs Most recent to oldest [Reference Range]: 1 2 3 Height 180 cm (01/21/21 6:43 AM) 180 cm (01/21/21 4:02 AM) 180 cm (01/20/21 7:30 PM) Weight 60.4 kg (01/15/21 1:16 PM) 60.4 kg (01/15/21 8:49 AM) Oxygen Saturation [94-100 %] 95 % (01/21/21 6:43 AM) 97 % (01/21/21 4:02 AM) 99 % (01/20/21 7:30 PM) Pulse Rate [55-90 bpm] 84 bpm (01/21/21 6:43 AM) 68 bpm (01/21/21 4:02 AM) 84 bpm (01/20/21 7:30 PM) Body Mass Index [18.5-24.99] 18.64 (01/15/21 1:16 PM) 18.64 (01/15/21 8:49 AM) Blood Pressure [90-138/55-84 mm Hg] 103/53mm Hg (01/21/21 6:43 AM) 98/47mm Hg (01/21/21 4:02 AM) 123/66mm Hg (01/20/21 7:30 PM) Respiratory Rate [16-30 br/min] 16 br/min (01/21/21 10:17 AM) 16 br/min (01/21/21 10:17 AM) 16 br/min (01/21/21 10:17 AM) Temperature [96.8-100.4 DegF] 98.2 DegF (01/21/21 6:43 AM) 98.8 DegF (01/21/21 4:02 AM) 99.7 DegF (01/20/21 7:30 PM) Liters per Minute 6 L/min (01/15/21 5:45 PM) 6 L/min (01/15/21 5:30 PM) Mode of Delivery (Oxygen) Room air (01/21/21 6:43 AM) Room air (01/21/21 4:02 AM) Room air (01/20/21 7:30 PM) Blood pressure sites Arm, left (01/21/21 6:43 AM) Arm, left (01/20/21 3:34 PM) Arm, left (01/20/21 7:03 AM) Temperature Route Oral (01/21/21 6:43 AM) Oral (01/21/21 4:02 AM) Oral (01/20/21 7:30 PM) Dry Weight 60.4 kg (01/15/21 1:16 PM) 60.4 kg (01/15/21 8:49 AM) Dry Weight Obtained Via Patient/family s tated (01/15/21 1:16 PM)
[2023-10-22 03:38] VITALS: BP 107/71; PULSE 80; RESP 16; TEMP 36.9; O2SAT 97
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
[2023-10-22 06:17] VITALS: BP 110/76; PULSE 71; RESP 16; TEMP 36.4; O2SAT 97
[2023-10-22] MEDS: oxyCODONE HCl Immed Release 5 MG TABLET 10 MG PO (06:17)
[2023-10-22 06:23] VITALS: BP 110/76; PULSE 71; RESP 16; TEMP 36.4; O2SAT 97
== END 2023-10-22 06:25 | disposition home or self-care (01) ==
PROVIDERS: Emergency Provider Internal Medicine
DX: S20.219A Contusion of unspecified front wall of thorax, initial encounter (principal); V47.5XXA Car driver injured in collision with fixed or stationary object in traffic accident, initial encounter; Y93.89 Activity, other specified; Y92.410 Unspecified street and highway as the place of occurrence of the external cause; Y99.9 Unspecified external cause status
CPT/HCPCS: 71045; 73562; 93005; 99283; 99284

== ENCOUNTER → 2023-10-22 00:25 | Outpatient (BNV) | payer SELFPAY | PROVIDERS: Emergency Provider Internal Medicine; Visit Provider Internal Medicine Cardiovascular Disease | DX: R07.9 Chest pain, unspecified (principal) | CPT/HCPCS: 93010 ==